=== PATIENT | male | born 1965 | race Caucasian/White ===

== ENCOUNTER 2017-01-01 12:50 | Emergency (ER) | payer SELFPAY ==
[~2017-01-01] VITALS: Ht 175.3 cm; Wt 89.4 kg
[2017-01-01 12:56] VITALS: BP 179/112
--- NOTE | 2017-01-01 13:04 | NUR ---
Patient ambulated to bed 05.
--- NOTE | 2017-01-01 13:05 | NUR ---
AAO PT BEING ASSESS BY DR MONIQUE AT BEDSIDE
--- NOTE | 2017-01-01 13:07 | NUR ---
PATIENT PRESENTS TO ED WITH C/O LEFT LOWER TOOTH PAIN--X 3 DAYS;SWELLING REDNESS TO LEFT FACE, PAIN;HX;HTN;DENIES N/V/D; SKIN IS PINK/WARM/DRY; AAOX4 WITH EVEN AND STEADY GAIT; LUNGS CLEAR BL; HR EVEN AND REGULAR; PT DENIES ANY FEVER, CP, SOB, OR COUGH AT THIS TIME; PATIENT STATES PAIN OF 5/10 AT THIS TIME;PT GUARDING HIS LEFT FACE; PATIENT POSITIONED FOR COMFORT; HOB ELEVATED; BEDRAILS UP X2; BED DOWN.
--- NOTE | 2017-01-01 13:08 | NUR ---
Dr. Balderas evaluating patient at bedside.
--- NOTE | 2017-01-01 13:16 | NUR ---
Patient discharged with v/s stable. Written and verbal after care instructions given and explained. Patient alert, oriented and verbalized understanding of instructions. Ambulatory with steady gait. All questions addressed prior to discharge. ID band removed. Patient advised to follow up with PMD. Rx of CLEOCIN/TYLENOL given. Patient educated on indication of medication including possible reaction and side effects. Opportunity to ask questions provided and answered.
[2017-01-01 13:17] VITALS: BP 143/97
== END 2017-01-01 13:16 | disposition home or self-care (01) ==
LOC: MED 12:50
DX: K04.7 Periapical abscess without sinus (principal); K02.9 Dental caries, unspecified; F17.200 Nicotine dependence, unspecified, uncomplicated
CPT/HCPCS: 99283

== ENCOUNTER 2020-10-30 22:15 | Inpatient (IN) | payer MEDICAID, SELFPAY ==
[~2020-10-30] VITALS: Ht 175.3 cm; Wt 104.8 kg
[2020-10-30 22:33] VITALS: BP 186/138
--- NOTE | 2020-10-30 22:36 | NUR ---
TO LOBBY A/W BED VIA WHEEL CHAIR
[2020-10-31] VITALS (16 sets, daily range): BP systolic 142–186; BP diastolic 80–126
--- NOTE | 2020-10-31 02:03 | NUR ---
AMBULATED TO ER BED 1
--- NOTE | 2020-10-31 02:07 | NUR ---
SEE COMPLETE ASSESSMENT
[2020-10-31 02:27] LABS: BASOPHILS % (AUTO) 0.4 % (0.0-2.0); EOSINOPHILS # (AUTO) 0.1 K/uL (0-0.4); EOSINOPHILS % (AUTO) 0.6 % (0.0-4.0); HEMATOCRIT 44.9 % (36-52); HEMOGLOBIN 14.5 g/dL (12.0-18.0); LYMPHOCYTES # (AUTO) 1.4 K/uL (2.0-11.5); MEAN CORPUSCULAR HEMOGLOBIN 28 pg (27-31); MEAN CORPUSCULAR HGB CONC 32 g/dL (33-37); MEAN CORPUSCULAR VOLUME 86.9 fL (80-94); MONOCYTES % (AUTO) 8.2 % (1.7-9.3); NEUTROPHILS # (AUTO) 9.4 K/uL (1.8-7.7); NEUTROPHILS % (AUTO) 78.8 % (42.2-75.2); PLATELET COUNT (AUTO) 356 K/uL (140-450); RED BLOOD CELL COUNT(AUTO) 5.16 MIL/uL (4.20-6.10); RED CELL DISTRIBUTION WIDTH 15.3 % (11.6-13.7); WHITE BLOOD COUNT (AUTO) 11.9 K/uL (4.8-10.8)
--- NOTE | 2020-10-31 02:30 | NUR ---
PAULINO, [facility]--- [phone]
--- NOTE | 2020-10-31 02:37 | NUR ---
URINE SPECIMEN COLLECTED
[2020-10-31 02:42] LABS: APPEARANCE,URINE CLEAR (CLEAR); BILIRUBIN,URINE NEGATIVE (NEGATIVE); BLOOD, URINE TRACE-I (NEGATIVE); COLOR,URINE YELLOW (YELLOW); LEUKOCYTE ESTERASE ,URINE NEGATIVE (NEGATIVE); NITRITE, URINE NEGATIVE (NEGATIVE); UGLUCOSE NEGATIVE (NEGATIVE)
[2020-10-31 02:42] LABS: ANION GAP 16.1 (8-16); ASPARTATE AMINOTRANSFERASE 55 U/L (15-37); CARBON DIOXIDE 20.5 mmol/L (21-32); CHLORIDE 106 mmol/L (98-107); CREATININE 1.8 mg/dL (0.6-1.3); GFR ARICAN-AMERICAN 51 mL/min (>90); GLUCOSE 119 mg/dL (74-106); LIPASE 105 U/L (73-393); POTASSIUM 4.6 mmol/L (3.5-5.1); SODIUM SERUM 138 mmol/L (136-145); TOTAL BILIRUBIN 0.6 mg/dL (0.0-1.0); UREA NITROGEN, BLOOD 29 mg/dL (7-18)
[2020-10-31 02:49] LABS: RBC,URINE 0-5 /HPF (0-5); WBC,URINE 0-5 /HPF (0-5)
--- NOTE | 2020-10-31 03:25 | NUR ---
PT TAKEN TO CT VIA THOMAS
--- NOTE | 2020-10-31 03:55 | NUR ---
ARMANDO COLLECTED AND WALKED TO LAB.
--- NOTE | 2020-10-31 04:01 | NUR ---
PT REPORTS FEELINGS OF ANXIETY. HR AT 113 AND BP 202/141. PT STATES "I DONT WANT TO BE HERE. I JUST WANT TO GO HOME AND SOON POSSIBLE." ERMD MADE AWARE.
[2020-10-31] MEDS ORDERED: FUROSEMIDE 40 MG/4 ML VIAL IVP ONE (04:05)
[2020-10-31] MEDS ORDERED: LORazepam 2 MG/ML VIAL ONE (04:14)
--- NOTE | 2020-10-31 04:15 | NUR ---
VERBAL ORDER RECEIVED FOR ATIVAN 1MG IVP. ORDER CARRIED OUT.
[2020-10-31] MEDS ORDERED: LORazepam 2 MG/ML VIAL IVP ONE (04:20)
[2020-10-31] MEDS ORDERED: ENALAPRILAT 2.5 MG/2 ML VIAL IVP ONE (04:35)
--- NOTE | 2020-10-31 04:58 | NUR ---
CALLED PAULINO, SP[facility]SE FOR UPDATE. NO ANSWER AT THIS TIME AND VOICEMAIL LEFT.
[2020-10-31] MEDS ORDERED: NITROGLYCERIN 50 MG/D5W PREMIX 250 ML IV ONE (05:10)
[2020-10-31] MEDS ORDERED: NITROGLYCERIN 50 MG/D5W PREMIX 250 ML IV PRN (05:10)
--- NOTE | 2020-10-31 05:10 | NUR ---
PT MOVED TO ER BED #11
--- NOTE | 2020-10-31 05:10 | NUR ---
REOPRT GIVEN TO JACOBO VEGA. TRANSFER OF CARE AT THIS TIME.
--- NOTE | 2020-10-31 05:15 | NUR ---
PATIENT URINATED INTO URINAL- OUTPUT 750 ML.
--- NOTE | 2020-10-31 05:35 | NUR ---
STARTED NITROGLYCERIN DRIP, REFER TO IV SPREADSHEET FOR VITAL SIGNS.
--- NOTE | 2020-10-31 05:41 | NUR ---
PATIENT URINATED INTO URINAL- OUTPUT 700 ML.
[2020-10-31] MEDS ORDERED: hePARIN / DEXT 5% PREMIX 250 ML IV SCH ×2 (06:25→07:58)
[2020-10-31] MEDS ORDERED: HEPARIN PER PHARMACY MC PRN (06:25)
--- NOTE | 2020-10-31 06:42 | NUR ---
PATIENT URINATED INTO URINAL- OUTPUT 750 ML.
--- NOTE | 2020-10-31 07:10 | NUR ---
REPORT GIVEN TO JACOBO CASTLE FOR CHANGE OF SHIFT.
--- NOTE | 2020-10-31 07:36 | NUR ---
Patient will be admitted to care of Dr Sandoval. Admited to ICU. Will go to room ICU 2. Belongings list completed. Report to Sienna CENTENO.
--- NOTE | 2020-10-31 07:36 | NUR ---
Note maryjane in EDM - 10/31/20 at 0741 by MEDJACI Patient will be admitted to care of Dr Sandoval. Admited to Tele. Will go to room ICU 2. Belongings list completed. Report to Sienna CENTENO.
--- NOTE | 2020-10-31 07:45 | NUR ---
RECEIVED PHONE REPORT FROM ER NURSE TIN CENTENO. PT WILL BE ADMITTED TO BED 2
--- NOTE | 2020-10-31 08:05 | NUR ---
PT ARRIVED AT UNIT VIA GURNEY, PT AMBULATED TO BED TOLERATED WELL, IV TO R AC 20G PATENT INTACT, INFUSING NITROGLYCERINE DRIP @ 50MCG/MIN, INFUSING WELL, PT ALERT ORIENTED, ABLE TO LET NEEDS KNOWN, MRSA SWAB TAKEN, ORIENT PT TO ROOM, CALL LIGHT AND BED. INITIAL ASSESSMENT DONE, ALL SAFETY PRECAUTION MET, CALL LIGHT WITHIN REACH. WILL CONTINUE TO MONITOR.
--- NOTE | 2020-10-31 08:24 | NUR ---
MEDICATION HEPARIN DRIP STARTED ON PT, WILL CONTINUE TO MONITOR. PTT ORDERED FOR 162. Addendum: 10/31/20 at 1152 by Sienna Hammond RN CORRECTION PTT ORDERED AT 1430
[2020-10-31 08:28] LABS: PROTHROMBIN TIME 11.1 secs (10.8-13.4)
[2020-10-31] MEDS ORDERED: POTASSIUM CHLORIDE 10 MEQ TABER PO PRN (08:40)
[2020-10-31] MEDS ORDERED: ACETAMINOPHEN 325 MG TAB PO PRN (08:40)
[2020-10-31] MEDS ORDERED: NITROGLYCERIN 0.4 MG TAB SL PRN (08:40)
[2020-10-31] MEDS ORDERED: ZOLPIDEM 5 MG TAB PO PRN (08:40)
[2020-10-31] MEDS ORDERED: ONDANSETRON 4 MG/2 ML VIAL IM/IVP PRN (08:40)
[2020-10-31] MEDS ORDERED: NACL 0.9% 1,000 ML IV SCH (08:40)
[2020-10-31] MEDS ORDERED: guaiFENesin DM 200/20 MG-10 ML 10 ML UDC PO PRN (08:40)
[2020-10-31] MEDS ORDERED: DOCUSATE SODIUM 100 MG GELCAP PO PRN (08:40)
[2020-10-31] MEDS ORDERED: HYDROcodone/APAP 7.5/325 MG 1 TAB PO PRN (08:40)
[2020-10-31] MEDS ORDERED: METOPROLOL 25 MG TAB PO SCH (09:00)
[2020-10-31] MEDS: ECOTRIN 81 MG TABEC PO SCH (09:43)
[2020-10-31] MEDS: PANTOPRAZOLE 40 MG TABEC PO SCH (09:43)
--- NOTE | 2020-10-31 09:43 | NUR ---
PO MEDICATIONS GIVEN PER DR ORDER. WILL CONTINUE TO MONITOR.
--- NOTE | 2020-10-31 10:22 | NUR ---
TALKED TO DR JOE REGARDING PT BP IS HIGH STILL, PT IS EDEMATOUS, AND THERE IS AN ORDER FOR IVF. PER DR JOE TO CANCEL IVF ORDER, WILL CONTINUE WITH ORDERS.
[2020-10-31 11:21] LABS: PROTHROMBIN TIME 12.4 secs (10.8-13.4)
--- NOTE | 2020-10-31 11:24 | NUR ---
SOCIAL WORK NOTE: SW WAS UNABLE TO MEET PATIENT AT BEDSIDE. SW CONTACTED EMERGENCY CONTACT, RYAN DEUTSCH, AND LEFT VM TO COMPLETE ASSESSMENT. DELISA WILL FOLLOW UP.
[2020-10-31 11:37] LABS: CHOL/HDL RATIO 3.8 (1-4.5); FREE T4 (FREE THYROXINE) 0.69 ng/dL (0.76-1.46); MAGNESIUM 1.9 mg/dL (1.8-2.4); THYROID STIMULATING HORMONE 27.18 uIU/mL (0.34-3.74)
--- NOTE | 2020-10-31 14:00 | NUR ---
VISIT AT SIDE ORDER RECEIVED PT. IS AWAKE AND ALERT FOLLOW COMMAND
--- NOTE | 2020-10-31 15:05 | NUR ---
D/C HEPARIN DRIP AND NITROGLYCERINE DRIP PER ORDER FROM DR. SARGENT,
--- NOTE | 2020-10-31 15:09 | NUR ---
PATIENT HAS BEEN SCREENED AND CATEGORIZED MODERATE NUTRITION RISK. PATIENT WILL BE SEEN WITHIN 3-5 DAYS OF ADMISSION. 11/02/20 11/04/[address]
[2020-10-31 15:18] LABS: BARBITURATE, URINE NEGATIVE ng/ml (NEG <=200)
[2020-10-31 15:19] LABS: BENZODIAZEPINE, URINE POSITIVE ng/mL (NEG <=200); CANNABINOID, URINE POSITIVE ng/mL (NEG <=50); COCAINE, URINE NEGATIVE ng/mL (NEG <=300); OPIATE, URINE NEGATIVE ng/mL (NEG <=2000); PHENCYCLIDINE SCREEN,URINE NEGATIVE ng/mL (NEG <=25)
--- NOTE | 2020-10-31 16:00 | NUR ---
NOTIFY DR SARGENT PT. BP 175/118 AFTER D/C NITROGLYCERINE.
--- NOTE | 2020-10-31 17:00 | NUR ---
HYDRALAZINE GAVE ORDER. PATIENT AWAKE AND ALERT DENIED PAIN.
[2020-10-31 17:08] LABS: URINE TOTAL PROTEIN 29.4 mg/dL (0-12)
[2020-10-31] MEDS: ATORVASTATIN 20 MG TAB PO SCH (17:08)
[2020-10-31] MEDS: hydrALAZINE 25 MG TAB PO PRN (17:08)
--- NOTE | 2020-10-31 19:09 | NUR ---
REPORT GIVE TO MU Kulkarni
--- NOTE | 2020-10-31 19:30 | NUR ---
PATIENT ALERT AND ORIENTED X4, TO PERSON, PLACE, TIME AND EVENT. PATIENT TRACKING WITH EYES UPON ARRIVING AT BEDSIDE. PATIENT HOB 30 DEGREES, LYING IN A POSITION OF COMFORT. PATIENT ON ROOM AIR, TOLERATING WELL, NO SIGNS OF DISTRESS NOTED. PATIENT TOLERATING CURRENT CARDIAC DIET. PATIENT CONNECTED TO CONTINUOUS CARDIAC MONITORING, SINUS TACHY HR 110 ON THE MONITOR AND RR 22. PATIENT IV ACCESS SITES INCLUDE RIGHT 20 G AC, INTACT, PATENT AND DRESSING DRY. NO DRIPS CURRENTLY RUNNING. PATIENT WEIGHT IS APPROXIMATELY 99.7 KG. PATIENT ABLE TO USE BEDSIDE COMMODE AND URINAL WITH NURSING ASSISTANCE. PATIENT SKINS INTACT. PATIENT OFFLOADED FROM PRESSURE POINTS WITH USE OF PILLOWS AND FREQUENT REPOSITIONING. BED LOCKED AND LOWERED INTO A POSITION OF SAFETY, WILL CONTINUE TO CLOSELY MONITOR AND FREQUENTLY ROUND.
--- NOTE | 2020-10-31 20:00 | NUR ---
PATIENT RESTING IN A POSITION OF COMFORT, HOB 25 DEGREES, PATIENT WATCHING TV, STATED HE FEELS FINE WHEN ASKED. WILL CONTINUE TO CLOSELY MONITOR AND FREQUENTLY ROUND.
[2020-10-31] MEDS: FUROSEMIDE 40 MG/4 ML VIAL IVP SCH (20:03)
[2020-10-31] MEDS: carvediloL 12.5 MG TAB PO SCH (20:04)
--- NOTE | 2020-10-31 20:20 | NUR ---
PATIENT HAD 1 VOID.
--- NOTE | 2020-10-31 21:15 | NUR ---
PATIENT HAD 1 VOID.
--- NOTE | 2020-10-31 22:00 | NUR ---
PATIENT CONTINUING TO REST/SLEEP IN A POSITION OF COMFORT, NO SIGNS OF DISTRESS NOTED, 1 VOID. WILL CONTINUE TO CLOSELY MONITOR AND FREQUENTLY ROUND.
[2020-11-01] VITALS (17 sets, daily range): BP systolic 87–165; BP diastolic 46–118
--- NOTE | 2020-11-01 | NUR ---
RESTING IN A POSITION OF COMFORT, HOB 30 DEGREES, TOLERATING CURRENT THERAPIES WELL. HR 93 AND RR 22, NO SIGNS OF DISTRESS NOTED. WILL CONTINUE TO CLOSELY MONITOR AND FREQUENTLY ROUND.
--- NOTE | 2020-11-01 02:00 | NUR ---
ASSISTED PATIENT INTO NEW GOWN AND LINENS, ASSISTED BACK INTO A POSITION OF COMFORT IN THE BED, WILL CONTINUE TO CLOSELY MONITOR AND FREQUENTLY ROUND.
--- NOTE | 2020-11-01 04:00 | NUR ---
RESTING IN THE BED, CONTINUING TO WATCH TV. PATIENT STATES HE IS FEELING A LITTLE ANXIOUS. AT BEDSIDE CONSOLING AND COMFORTING THE PATIENT WITH NON PHARMACOLOGICAL MEASURES. PATIENT ABLE TO RELAX AND SLEEP. WILL CONTINUE TO CLOSELY MONITOR AND FREQUENTLY ROUND.
--- NOTE | 2020-11-01 06:00 | NUR ---
GIVEN SPONGE BATH, HYGIENE AND GOWN CHANGE. NO SIGNS OF DISTRESS, WILL CONTINUE TO CLOSELY MONITOR AND FREQUENTLY ROUND.
[2020-11-01 06:35] LABS: ALBUMIN 2.9 g/dL (3.4-5.0); ANION GAP 11.1 (8-16); BASOPHILS # (AUTO) 0.1 K/uL (0.00-0.22); BASOPHILS % (AUTO) 0.7 % (0.0-2.0); CARBON DIOXIDE 29.2 mmol/L (21-32); CREATININE 2.2 mg/dL (0.6-1.3); EOSINOPHILS % (AUTO) 0.4 % (0.0-4.0); HEMATOCRIT 41.4 % (36-52); HEMOGLOBIN 13.1 g/dL (12.0-18.0); LYMPHOCYTES # (AUTO) 1.1 K/uL (2.0-11.5); LYMPHOCYTES % (AUTO) 9.2 % (20.5-51.1); MEAN CORPUSCULAR HEMOGLOBIN 28 pg (27-31); MEAN CORPUSCULAR HGB CONC 32 g/dL (33-37); MEAN CORPUSCULAR VOLUME 87.1 fL (80-94); MONOCYTES % (AUTO) 9.1 % (1.7-9.3); NEUTROPHILS # (AUTO) 9.2 K/uL (1.8-7.7); NEUTROPHILS % (AUTO) 80.6 % (42.2-75.2); PLATELET COUNT (AUTO) 304 K/uL (140-450); POTASSIUM 4.3 mmol/L (3.5-5.1); RED BLOOD CELL COUNT(AUTO) 4.75 MIL/uL (4.20-6.10); RED CELL DISTRIBUTION WIDTH 15.4 % (11.6-13.7); TOTAL BILIRUBIN 0.7 mg/dL (0.0-1.0); WHITE BLOOD COUNT (AUTO) 11.5 K/uL (4.8-10.8)
--- NOTE | 2020-11-01 07:15 | NUR ---
RECEIVED REPORT FROM POLICE JUSTICE NURSE. PATIENT IN BED, RESTING ON SIDE, AWAKE AND ALERT, ABLE TO MAKE NEEDS KNOWN. R AC 20G, SL, CLEAN DRY INTACT. URINAL AT BEDSIDE. BED IN LOW POSITION, EMISSIONS INSPECTOR IN PLACE, SAFETY MEASURES IN PLACE. BREATHING EVEN AND UNLABORED, NO SIGNS OF ACUTE DISTRESS NOTED.
--- NOTE | 2020-11-01 07:20 | NUR ---
REPORT AND CARE ENDORSED TO MARIO CENTENO.
[2020-11-01] MEDS: FUROSEMIDE 40 MG/4 ML VIAL IVP SCH ×2 (08:26→20:51)
[2020-11-01] MEDS: PANTOPRAZOLE 40 MG TABEC PO SCH (08:27)
[2020-11-01] MEDS: carvediloL 12.5 MG TAB PO SCH ×2 (08:27→20:51)
[2020-11-01] MEDS: ECOTRIN 81 MG TABEC PO SCH (08:27)
[2020-11-01] MEDS: ENOXAPARIN 40 MG/0.4 ML SYR SUBQ SCH (08:28)
[2020-11-01] MEDS: lisinopriL 10 MG TAB PO SCH (08:28)
--- NOTE | 2020-11-01 08:39 | NUR ---
ADMINISTERED SCHEDULED MEDS PER MD ORDER. MED EDUCATION PROVIDED, PATIENT VERBALIZES UNDERSTANDING. PATIENT SITTING IN BED WITH BREAKFAST, TOLERATED MEDS WELL WITH SIPS OF WATER. SAFETY MEASURES IN PLACE, ORACLE DATABASE ADMINISTRATOR IN PLACE.
--- NOTE | 2020-11-01 11:47 | NUR ---
DR GOODSON AT BEDSIDE. UA ORDERED.
--- NOTE | 2020-11-01 12:00 | NUR ---
DR MALDONADO AT BEDSIDE ROUNDING ON PATIENT.
[2020-11-01] MEDS: LEVOTHYROXINE 0.05 MG TAB PO SCH (12:04)
[2020-11-01 12:41] LABS: T4 (THYROXINE) 4.5 ug/dL (4.5 - 12.0)
--- NOTE | 2020-11-01 15:00 | NUR ---
RECEIVED REPORT FROM [facility] ICU NURSE PT IS AAOX4 ON ROOM AIR, SKIN INTACT, ON CARDIAC DIET, COVID 19 RAPID NEGATIVE ON 10/31/20, ECHOCARDIOGRAM DONE WITH 40-45% EJECTION FRACTION. CHEST XRAY DONE WITH IMPROVEMENT IN BILATERAL ATELECTASIS AND PERSISTENT CARDIOMEGALY.
--- NOTE | 2020-11-01 16:00 | NUR ---
PATIENT TRANSFERRED TO TELEMETRY UNIT. REPORT GIVEN TO RELOCATION COUNSELOR. PATIENT LEFT IN BED, VITALS STABLE. PATIENT STABLE, BREATHING EVEN AND UNLABORED, NO SIGNS OF ACUTE DISTRESS NOTED.
--- NOTE | 2020-11-01 16:10 | NUR ---
PATIENT ARRIVED AT THE UNIT ASSISTED TO BED, ORIENTED TO ROOM, CHECK VITAL SIGNS BP138/94 ID 83 TEMP 98 RR 18 OXYGEN SATURATION 895. NO DISTRESS NOTED PT IS STABLE.
[2020-11-01] MEDS: LORazepam 2 MG/ML VIAL IVP PRN (16:37)
--- NOTE | 2020-11-01 16:37 | NUR ---
PATIENT IS ANXIOUS AND IRRITABLE GAVE ATIVAN TO KEEP HIM CALM.
[2020-11-01] MEDS: ATORVASTATIN 20 MG TAB PO SCH (17:00)
--- NOTE | 2020-11-01 17:00 | NUR ---
MEDICATION DUE GIVEN PATIENT IS STABLE
--- NOTE | 2020-11-01 19:17 | NUR ---
ENDORSED TO NIGHT NURSE FOR CONTINUITY OF CARE. PT IS STABLE.
--- NOTE | 2020-11-01 19:19 | NUR ---
RECEIVED PT IN STABLE CONDITION FROM AM NURSE. AWAKE,ALERT AND ORIENTED X3. ON TELE MONITOR. BEDREST. NO SOB NOTED. O2 SAT 97%-99%. WITH HL ON THE LT WRIST G#22. CLEAR AND PATENT. PLAN OF CARE DISCUSSED A, NEED SOME REINFORCEMENT. FREQ ROUNDS NEEDED. SIDE RAILS UP X2. CALL LIGHT AND URINAL PLACED WITHIN REACH. WILL CONTINUE TO MONITOR.
--- NOTE | 2020-11-01 21:00 | NUR ---
ALL DUE MEDS GIVEN. TOLERATED WELL.
--- NOTE | 2020-11-01 23:00 | NUR ---
PT USES URINAL. VOIDED WELL. INSTRUCTED TO CALL IF NEED. ASSISTANCE. KEPT ON MOVING IN BED. TELE MONITOR PUT BACK TO PROPER CONNECTION. NO SOB NOTED.
[2020-11-02 00:30] VITALS: BP 138/90
[2020-11-02] MEDS: LORazepam 2 MG/ML VIAL IVP PRN (00:40)
--- NOTE | 2020-11-02 00:40 | NUR ---
PT IS AGITATED. CAN'T SEEM TO RELAX, GIVEN ATIVAN 1MG IV. WILL CONTINUE TO MONITOR.
--- NOTE | 2020-11-02 01:30 | NUR ---
MADE ROUNDS. PT ASLEEP NOW. WILL CONTINUE TO MONITOR.
--- NOTE | 2020-11-02 03:00 | NUR ---
MADE ROUNDS. PT TELE MONITOR OUT AGAIN. CHECKED ON PT. ASLEEP. NO S/S OF ANY DISTRESS NOTED.
[2020-11-02 05:30] VITALS: BP 162/116
[2020-11-02] MEDS: LEVOTHYROXINE 0.05 MG TAB PO SCH (05:46)
[2020-11-02] MEDS: hydrALAZINE 25 MG TAB PO PRN (05:55)
--- NOTE | 2020-11-02 05:55 | NUR ---
BP ELEVATE 162/116, HR-83 APRESOLINE 25 MG PO PRN GIVEN. WILL CONTINUE TO MONITOR.
[2020-11-02 06:00] LABS: BASOPHILS % (AUTO) 0.4 % (0.0-2.0); EOSINOPHILS # (AUTO) 0.1 K/uL (0-0.4); EOSINOPHILS % (AUTO) 0.7 % (0.0-4.0); HEMATOCRIT 44.7 % (36-52); HEMOGLOBIN 14.4 g/dL (12.0-18.0); LYMPHOCYTES # (AUTO) 1.2 K/uL (2.0-11.5); MEAN CORPUSCULAR HEMOGLOBIN 28 pg (27-31); MEAN CORPUSCULAR HGB CONC 32 g/dL (33-37); MEAN CORPUSCULAR VOLUME 87.4 fL (80-94); MONOCYTES # (AUTO) 0.8 K/uL (0.8-1.0); MONOCYTES % (AUTO) 8.7 % (1.7-9.3); NEUTROPHILS # (AUTO) 7.6 K/uL (1.8-7.7); NEUTROPHILS % (AUTO) 78.2 % (42.2-75.2); PLATELET COUNT (AUTO) 304 K/uL (140-450); RED BLOOD CELL COUNT(AUTO) 5.12 MIL/uL (4.20-6.10); RED CELL DISTRIBUTION WIDTH 15.5 % (11.6-13.7); WHITE BLOOD COUNT (AUTO) 9.7 K/uL (4.8-10.8)
[2020-11-02 06:21] LABS: ALBUMIN 2.8 g/dL (3.4-5.0); ANION GAP 14.8 (8-16); CREATININE 2.1 mg/dL (0.6-1.3); POTASSIUM 3.8 mmol/L (3.5-5.1); TOTAL BILIRUBIN 0.7 mg/dL (0.0-1.0)
--- NOTE | 2020-11-02 07:20 | NUR ---
ENDORSED PT IN STABLE CONDITION TO AM NURSE FOR CONTINUITY OF CARE.
--- NOTE | 2020-11-02 07:21 | NUR ---
RECEIVED REPORT FROM BUILDING TECH NURSE FOR CONTINUITY OF CARE. SAFETY MEASURES IN PLACE, CALL LIGHT WITHIN REACH. WILL CONTINUE TO MONITOR.
[2020-11-02 08:00] VITALS: BP 176/128
[2020-11-02] MEDS: ECOTRIN 81 MG TABEC PO SCH (08:39)
[2020-11-02] MEDS: ENOXAPARIN 40 MG/0.4 ML SYR SUBQ SCH (08:39)
[2020-11-02] MEDS: PANTOPRAZOLE 40 MG TABEC PO SCH (08:39)
[2020-11-02] MEDS: carvediloL 12.5 MG TAB PO SCH (08:39)
[2020-11-02] MEDS: FUROSEMIDE 40 MG/4 ML VIAL IVP SCH (08:39)
[2020-11-02] MEDS: lisinopriL 10 MG TAB PO SCH (08:39)
--- NOTE | 2020-11-02 08:51 | NUR ---
SCHEDULED MEDICATIONS DUE GIVEN. WILL CONTINUE TO MONITOR.
[2020-11-02 12:00] VITALS: BP 155/92
[2020-11-02] MEDS ORDERED: POTA8CAP4 PO (12:43)
[2020-11-02] MEDS ORDERED: CARV12.52 PO (12:43)
[2020-11-02] MEDS ORDERED: SYN.05 PO (12:43)
[2020-11-02] MEDS ORDERED: FURO-570 PO (12:43)
[2020-11-02] MEDS ORDERED: ASPI-1856 PO (12:43)
[2020-11-02] MEDS ORDERED: LISI10TA30 PO (12:43)
[2020-11-02] MEDS ORDERED: ATOR20TA40 PO (12:43)
--- NOTE | 2020-11-02 14:40 | NUR ---
DISCHARGE INSTRUCTIONS PROVIDED TO PATIENT IN PREFERRED LANGUAGE OF ANGOLAN. INSTRUCTIONS ON NEW/CHANGED MEDICATION REGIMEN, SIDE EFFECTS, DIET REGIMEN, FOLLOW-UP WITH PCP AND BRAKE RIDER FOR OUTPATIENT KIDNEY BIOPSY. ANSWERED ALL OF PATIENT'S QUESTIONS REGARDING DISCHARGE. PATIENT VERBALIZED UNDERSTANDING. IV SITE REMOVED WITH MINIMAL BLOOD AND LUMEN COMPLETELY INTACT. ID BANDS REMOVED. PATIENT'S AT LOBBY. ESCORTED PATIENT DOWN TO LOBBY VIA STEADY AMBULATION. PATIENT DISCHARGED AT THIS TIME IN STABLE CONDITION VIA PRIVATE VEHICLE.
[2020-11-02 16:45] LABS: URINE TOTAL PROTEIN 3.3 mg/dL (0-12)
== END 2020-11-02 14:40 | disposition home or self-care (01) | DRG 291 ==
LOC: MED 22:15 → MIC 10-31 06:13 → MTU 11-01 16:00
PROVIDERS: ADMIT Family Medicine; ATTEND Family Medicine
DX: I11.0 Hypertensive heart disease with heart failure (principal); N17.0 Acute kidney failure with tubular necrosis; E43 Unspecified severe protein-calorie malnutrition; I16.1 Hypertensive emergency; R18.8 Other ascites; E87.2 Acidosis; I50.43 Acute on chronic combined systolic (congestive) and diastolic (congestive) heart failure; K92.9 Disease of digestive system, unspecified; K57.30 Diverticulosis of large intestine without perforation or abscess without bleeding; K40.20 Bilateral inguinal hernia, without obstruction or gangrene, not specified as recurrent; E86.0 Dehydration; E03.9 Hypothyroidism, unspecified; I08.1 Rheumatic disorders of both mitral and tricuspid valves; F15.10 Other stimulant abuse, uncomplicated; Z20.822 Contact with and (suspected) exposure to COVID-19; F17.210 Nicotine dependence, cigarettes, uncomplicated; F12.10 Cannabis abuse, uncomplicated; I42.8 Other cardiomyopathies; Z68.34 Body mass index [BMI] 34.0-34.9, adult
CPT/HCPCS: 36415; 71045; 76604; 76705; 76770; 80053; 80305; 81001; 82150; 82570; 83036; 83690; 83735; 83880; 84100; 84436; 84439; 84443; 84479; 84484; 85025; 85610; 85730; 87081; 87205; 96365; 96375; 99285; G0482; J1644; J1650; J1940; J2060; J3490

== ENCOUNTER 2024-04-19 10:05 | Emergency (ER) | payer MEDICAID ==
[~2024-04-19] VITALS: Ht 175.3 cm; Wt 106.6 kg
[~2024-04-19 10:05] MED LIST: ASPI-1856 PO; ATOR20TA40 PO; CARV12.52 PO; FURO-570 PO; LISI10TA30 PO; POTA8CAP4 PO; SYN.05 PO
[2024-04-19 10:15] VITALS: BP 163/94; PULSE 80; RESP 18; TEMP 98.2; O2SAT 99
[2024-04-19] MEDS: HYDROcodone/APAP 10/325 MG 1 TAB TAB PO PRN (10:29)
[2024-04-19 10:42] LABS: BASOPHILS % (AUTO) 0.2 % (0.0-2.0); EOSINOPHILS # (AUTO) 0.1 K/uL (0-0.4); HEMATOCRIT 42.1 % (36-52); HEMOGLOBIN 14.1 g/dL (12.0-18.0); LYMPHOCYTES # (AUTO) 1.2 K/uL (2.0-11.5); LYMPHOCYTES % (AUTO) 11.9 % (20.5-51.1); MEAN CORPUSCULAR HEMOGLOBIN 30 pg (27-31); MEAN CORPUSCULAR HGB CONC 34 g/dL (33-37); MONOCYTES # (AUTO) 0.7 K/uL (0.8-1.0); MONOCYTES % (AUTO) 7.1 % (1.7-9.3); NEUTROPHILS # (AUTO) 8.1 K/uL (1.8-7.7); NEUTROPHILS % (AUTO) 79.8 % (42.2-75.2); PLATELET COUNT (AUTO) 245 K/uL (140-450); RED BLOOD CELL COUNT(AUTO) 4.67 MIL/uL (4.20-6.10); WHITE BLOOD COUNT (AUTO) 10.2 K/uL (4.8-10.8)
[2024-04-19 10:58] LABS: ALBUMIN 3.9 g/dL (3.4-5.0); ANION GAP 12.9 (8-16); CALCIUM 8.7 mg/dL (8.5-10.1); CARBON DIOXIDE 25.9 mmol/L (21-32); POTASSIUM 4.8 mmol/L (3.5-5.1); TOTAL BILIRUBIN 0.4 mg/dL (0.0-1.0); TOTAL PROTEIN, SERUM 7.6 g/dL (6.4-8.2)
[2024-04-19] MEDS ORDERED: INDO-305 PO (11:10)
[2024-04-19] MEDS: KETOROLAC 60 MG/2 ML VIAL IM ONE (11:17)
[2024-04-19] MEDS ORDERED: METH4TAB1 PO (12:08)
[2024-04-19 12:37] VITALS: BP 163/94; PULSE 80; RESP 18; TEMP 98.2; O2SAT 99
== END 2024-04-19 12:37 | disposition home or self-care (01) ==
LOC: MED 10:05
DX: M10.9 Gout, unspecified (principal); N17.9 Acute kidney failure, unspecified; I10 Essential (primary) hypertension; Z79.899 Other long term (current) drug therapy
CPT/HCPCS: 36415; 73630; 80053; 84550; 85025; 85379; 85651; 86140; 96372; 99284; J1885